=== PATIENT | female | born 1960 | race American Indian/Alaskan Native ===

== ENCOUNTER 2017-02-02 06:36 | Day surgery (SDC) | payer OTHER ==
[2017-02-02] MEDS ORDERED: ZOFRAN IV PRN (07:10)
[2017-02-02] MEDS ORDERED: NORCO 5/325 PO PRN (07:10)
[2017-02-02] MEDS ORDERED: DILAUDID IV PRN (07:10)
[2017-02-02] MEDS ORDERED: DIPRIVAN 10 MG/ML IV ONE (07:11)
[2017-02-02] MEDS ORDERED: NACL BACTERIOSTATIC INFILTRATI ONE (07:11)
[2017-02-02] MEDS ORDERED: XYLOCAINE MPF 2% ONE (07:19)
--- NOTE | 2017-02-02 07:22 | Anesthesia Consultation ---
Anesthesia Consult and Med Hx Date of service: 02/02/17 - Airway Anesthetic Teeth Evaluation: Good ROM Head & Neck: Adequate Mental/Hyoid Distance: Adequate Mallampati Class: Class II Intubation Access Assessment: Probably Good - Pulmonary Exam CTA: Yes - Cardiac Exam Cardiac Exam: RRR - Pre-Operative Health Status ASA Pre-Surgery Classification: ASA3 Proposed Anesthetic Plan: General - Pulmonary Hx Smoking: No Hx Asthma: Yes (INHALER PRN) Hx Sleep Apnea: No (JORGE PRE SCREEN LOW RISK) - Cardiovascular System Hx Hypertension: No - Hematic Hx Anemia: Yes (NO RECENT) - Other Systems Hx Cancer: No
--- NOTE | 2017-02-02 07:23 | Anesthesia Day of Surgery ---
Anesthesia Day of Surgery - Day of Surgery Patient Examined: Yes Patient H&P Reviewed: Yes Patient is NPO: Yes
[2017-02-02] MEDS ORDERED: PROVENTIL IH NR (07:30)
[2017-02-02] MEDS ORDERED: PEPCID PO NR (08:00)
[2017-02-02] MEDS ORDERED: ceFAZolin 2 GM in NACL 0.9% 100 ML IV ONE (08:00)
[2017-02-02] MEDS ORDERED: NACL 0.9% 1000 ML 1,000 ML IV SCH ×2 (08:00→11:00)
[2017-02-02] MEDS ORDERED: ANCEF/STERILE WATER 2 GM/20 ML 2 GM/20 ML SYRINGE IV SCH (08:00)
[2017-02-02] MEDS ORDERED: VERSED IV NR (08:00)
[2017-02-02] MEDS ORDERED: WATER FOR IRRIG STERILE IR ONE ×2 (09:04→09:05)
[2017-02-02] MEDS ORDERED: OMNIPAQUE 300 MG/50 ML (CATH LAB) IV ONE ×2 (09:05)
[2017-02-02] MEDS ORDERED: ZOFRAN ONE ×2 (09:11)
[2017-02-02] MEDS ORDERED: ePHEDrine SULFATE ONE (09:15)
[2017-02-02] MEDS ORDERED: NEO SYNEPHRINE/NS Syringe(OR USE) IV ONE (09:19)
[2017-02-02] MEDS ORDERED: NACL 0.9% 1000 ML 1,000 ML ONE (09:33)
--- NOTE | 2017-02-02 09:55 | Short Stay Summary ---
Short Stay Documentation Date of service: 02/02/17 - History H&P: obtained from office - Allergies and Medications Current Medications: Allergies Iodinated Contrast Media - IV Dye Allergy (Verified 01/17/17 15:36) Hives iodine Allergy (Verified 01/17/17 15:36) Hives Sulfa (Sulfonamide Antibiotics) Allergy (Verified 01/17/17 15:36) Hives sulfamethoxazole [From Bactrim] Allergy (Verified 01/17/17 15:36) Hives trimethoprim [From Bactrim] Allergy (Verified 01/17/17 15:36) Hives Home Medications Medication Instructions Recorded Confirmed Last Taken Type ALBUTEROL Inhaler [ProAir HFA 2 puff INHALATION PRN PRN 01/17/17 02/02/17 07:05 History Inhaler] Fluticasone [Flonase] 1 spray NS QDAY 02/02/17 02/02/17 02/01/17 History Loratadine [Claritin] 10 mg PO DAILY 02/02/17 02/02/17 02/01/17 History Active Medications Acetaminophen/Hydrocodone Bitart ([place] 5/325) 2 each PO ONCE PRN PRN Reason: Pain, Moderate (4-6) Stop: 02/02/17 23:59 Albuterol (Proventil) 2.5 mg IH PREOP NR Stop: 02/02/17 23:59 Last Admin: 02/02/17 07:24 Dose: 2.5 mg Famotidine (Pepcid) 20 mg PO PREOP NR Stop: 02/02/17 23:59 Last Admin: 02/02/17 07:31 Dose: 20 mg Hydromorphone HCl (Dilaudid) 0.5 mg IV Q10MIN PRN PRN Reason: Pain , Severe (7-10) Stop: 02/02/17 23:59 Sodium Chloride (Nacl 0.9% 1000 Ml) 1,000 mls @ 100 mls/hr IV DIRECT PAULINO Stop: 02/02/17 23:59 Last Admin: 02/02/17 07:31 Dose: 100 mls/hr Cefazolin Sodium (Ancef/Sterile Water 2 Gm/20 Ml) 2 gm in 20 mls @ 80 mls/hr IV PREOP PAULINO Stop: 02/02/17 23:59 Midazolam HCl (Versed) 2 mg IV PREOP NR Stop: 02/02/17 23:59 Last Admin: 02/02/17 07:31 Dose: 2 mg Ondansetron HCl (Zofran) 4 mg IV ONCE PRN PRN Reason: Nausea And Vomiting Stop: 02/02/17 23:59 - Brief post op/procedure progress note Date of procedure: 02/02/17 Pre-op diagnosis: right renal pelvis stone 14mm Procedure: cysto rpg right stent 6x28, right eswl Anesthesia: GETA Findings: good frag Surgeon: BENNETT JJ Estimated blood loss: minimal Pathology: none Specimen disposition: to lab Condition: stable - Hospital course Hospital course: or pacu home - Disposition Condition at discharge: Good Disposition: DISCHARGED TO HOME OR SELFCARE Short Stay Discharge Plan Activity: advance as tolerated Diet: advance as tolerated Follow up with: RAYNA STEPHENS MD [Primary Care Provider] - 7 Days
--- NOTE | 2017-02-02 10:32 | Post Anesthesia Evaluation ---
- Post Anesthesia Evaluation Patient Participated: Yes Airway Patent: Yes Stable Respiratory Function: Yes Nausea/Vomiting: No Temp > 96.8F: Yes Pain Manageable: Yes Adequeate Hydration: Yes Anesthesia Complications: No
[2017-02-02] MEDS ORDERED: REGLAN IV ONE ×2 (10:58→12:00)
[2017-02-02] MEDS ORDERED: PERCOCET 5/325 PO ONE (10:59)
--- NOTE | 2017-02-02 12:02 | Operative Report ---
UROLOGY OPERATIVE NOTE PREOPERATIVE DIAGNOSES: 1. Right renal stones, multiple in the lower pole and mid kidney calices. 2. Right ureteropelvic junction renal pelvis stone measuring approximately 12 to 14 mm. POSTOPERATIVE DIAGNOSES: 1. Right renal stones, multiple in the lower pole and mid kidney calices. 2. Right ureteropelvic junction renal pelvis stone measuring approximately 12 to 14 mm. PROCEDURES: 1. Cystoscopy, right stent placement. 2. Right extracorporeal shockwave lithotripsy. SURGEON: Kun Cosme MD ANESTHESIA: General. SPECIMENS: None. ESTIMATED BLOOD LOSS: Minimal. COMPLICATIONS: None. FINDINGS: There are no signs of infection with clear drainage when wire and stent placed, shockwaves with 4 kilovolts, with complete non-visibility of stone at the end of the procedure. CLINICAL INDICATION: Counseled RCBA, antibiotics, SCDs. The patient was found to have these stones, but did have some pain a couple of week ago, likely ____, but usually has no significant symptoms, no pains, was counseled on options given position of stone, elected to proceed with stent and procedure. DESCRIPTION OF PROCEDURE: Antibiotics and SCDs, transferred to the OR suite in supine position, anesthesia, dorsal lithotomy, prepped and draped in standard fashion. A 20-Tajik scope passed. Pancystoscopy 30 and 70 degree lens, no tumors. Right UO visualized using a concentration of only 20% contrast in the retrograde, it was diluted with water 80%. The contrast injected just up the ureter, just below the stone to confirm the position, did not inject any contrast beyond the stone to allow minimal amount of contrast exposure. Glidewire was passed up to the renal pelvis and of note even before the Glidewire was passed the contrast was completely drained out of the right ureter into the bladder and completely drained out of the system with no remaining contrast and no contrast has been ____ to the pelvis due to the patient's history. This wire was passed, it went up above the stone into the upper pole. A 6 x 28 double-J stent was passed over the wire under direct and fluoroscopic visualization, this was passed up to the right renal pelvis up to the upper pole. This was then slowly pulled down and looped around the stone in the renal pelvis in excellent position. The wire had been removed. There was fluid effluxing from the ports of the stent. Bladder was drained. We began our shockwave lithotripsy. There was good visualization of the stone, 2500 shocks was intermittently positioning as necessary, a maximum of 4.0 kilovolts. At the end of the procedure, we completely could not keep the stone at all, it had excellent fragmentation for stone of that size. The patient was awakened and transferred to PACU in good and stable condition. PLAN: The patient is staged for future stent removal and future additional shockwave lithotripsy with the other stones or other procedures. JOB# [id number] ATS/NTS
[2017-02-02] MEDS ORDERED: DECADRON 12 MG in NACL 0.9% 50 ML IV NR (13:00)
[2017-02-02 13:20] VITALS: BP 125/78
== END 2017-02-02 14:39 | disposition home or self-care (01) ==
LOC: OR 06:36
PROVIDERS: ATTEND Urology
DX: N20.0 Calculus of kidney (principal); I10 Essential (primary) hypertension; J45.909 Unspecified asthma, uncomplicated; M19.90 Unspecified osteoarthritis, unspecified site; M06.9 Rheumatoid arthritis, unspecified; D64.9 Anemia, unspecified; Z82.49 Family history of ischemic heart disease and other diseases of the circulatory system; Z83.511 Family history of glaucoma; Z80.0 Family history of malignant neoplasm of digestive organs; Z82.5 Family history of asthma and other chronic lower respiratory diseases; Z83.3 Family history of diabetes mellitus
CPT/HCPCS: 50590; 52332; A4217; C1758; C1769; C2617; J0690; J1100; J1170; J2250; J2370; J2405; J2704; J2765; J7030; Q9967